=== PATIENT | female | born 1950 | race Caucasian/White ===

== ENCOUNTER 2016-07-25 11:17 | Inpatient (IN) | payer MEDICARE, BC ==
[~2016-07-25] VITALS: Ht 165.1 cm; Wt 52.7 kg
[~2016-07-25 11:17] MED LIST: ACETAMINOPHEN 1,000 MG/100 ML IV ONE; DEXAMETHASONE 4 MG/ML VIAL IV ONE; FENTANYL 250 MCG/5 ML AMP IV ONE; ONDANSETRON 4 MG VIAL IV PUSH ONE; PROPOFOL 20 ML VIAL IV ONE; ROCURONIUM 50 MG VIAL IV ONE
[2016-07-25] MEDS ORDERED: ONDANSETRON 4 MG VIAL ONE (12:24)
[2016-07-25] MEDS ORDERED: DILAUDID 1 MG/ML AMP ONE (12:25)
[2016-07-25] MEDS ORDERED: ACETAMINOPHEN 325 MG TAB PO PRN (14:05)
[2016-07-25] MEDS ORDERED: MORPHINE 4 MG/ML SYR ONE (15:16)
[2016-07-25 16:36] VITALS: BP_SYST 130; RESP 18; TEMP 98.5
[2016-07-25 16:37] VITALS: Ht 165.1 cm; Wt 52.7 kg
[2016-07-25] MEDS: CHOLECALCIFEROL 1,000 UNITS TAB PO SCH (17:40)
[2016-07-25] MEDS: MULTIVITS/MIN (OCUVITE) TAB PO SCH (17:40)
[2016-07-25] MEDS ORDERED: MULTIVITS/MINERALS (THERAGRAN M) TAB PO SCH (17:40)
[2016-07-25] MEDS ORDERED: TIZANIDINE 4 MG TAB PO PRN (17:45)
[2016-07-25] MEDS ORDERED: ONDANSETRON 4 MG VIAL IV PUSH PRN (17:45)
[2016-07-25] MEDS ORDERED: MISSING DOSE XX ONE (17:55)
[2016-07-25] MEDS: SODIUM CHLOR 0.9% W/KCL 20MEQ 1,000 ML IV SCH (17:58)
[2016-07-25] MEDS: KETOROLAC 15 MG/ML VIAL IV PRN (17:59)
[2016-07-25 19:34] VITALS: BP_SYST 120; RESP 16; TEMP 98.2
[2016-07-25] MEDS: FAMOTIDINE 20 MG INJ IV SCH (20:26)
[2016-07-25] MEDS: MORPHINE 4 MG/ML SYR IV PRN (20:26)
[2016-07-25 22:45] VITALS: BP_SYST 120; RESP 16; TEMP 97.5
[2016-07-26] VITALS (22 sets, daily range): BP systolic 105–136; RESP 12–18; TEMP 97.9–99.1
[2016-07-26] MEDS: MORPHINE 4 MG/ML SYR IV PRN ×3 (00:36→20:55)
[2016-07-26] MEDS: SODIUM CHLOR 0.9% W/KCL 20MEQ 1,000 ML IV SCH (07:04)
[2016-07-26] MEDS ORDERED: CEFAZOLIN 2,000 MG in SODIUM CHLORIDE 0.9% 100 ML IV ONE (07:10)
[2016-07-26] MEDS ORDERED: LACT RINGERS 1,000 ML IV SCH (07:50)
[2016-07-26] MEDS ORDERED: MIDAZOLAM 2 MG/2 ML INJ IV ONE (07:50)
[2016-07-26] MEDS ORDERED: LIDOCAINE 1% BUFFERED 1 ML SYR INTRADERM PRN (07:50)
[2016-07-26] MEDS ORDERED: GLYCOPYRROLATE 0.2 MG/ML VIAL IV ONE (07:50)
[2016-07-26] MEDS ORDERED: ONDANSETRON 4 MG VIAL IV ONE (08:00)
[2016-07-26] MEDS: FAMOTIDINE 20 MG INJ IV SCH ×2 (09:00→20:53)
[2016-07-26] MEDS: CHOLECALCIFEROL 1,000 UNITS TAB PO SCH (09:00)
[2016-07-26] MEDS: MULTIVITS/MIN (OCUVITE) TAB PO SCH (09:00)
[2016-07-26] MEDS ORDERED: ROPIVACAINE 0.5% 139 MG, EPINEPHrine 1:1,000 0.2 MG, KETOROLAC INJ 30 MG, MORPHINE 10 MG SUBQ ONE ×4 (09:20)
[2016-07-26] MEDS ORDERED: MISSING DOSE XX ONE (10:15)
[2016-07-26] MEDS: KETOROLAC 15 MG/ML VIAL IV PRN (10:46)
[2016-07-26] MEDS ORDERED: SODIUM CHLORIDE 0.9% IV ONE ×4 (14:30)
[2016-07-26] MEDS ORDERED: DILAUDID 1 MG/ML AMP IV PRN ×2 (14:30→14:40)
[2016-07-26] MEDS ORDERED: TRANEXAMIC ACID IV ONE ×4 (14:30)
[2016-07-26] MEDS ORDERED: OXYCODONE 5 MG TAB PO PRN ×2 (14:30→14:40)
[2016-07-26] MEDS ORDERED: ONDANSETRON 4 MG VIAL IV PRN ×3 (14:30→16:25)
[2016-07-26] MEDS ORDERED: MEPERIDINE 25 MG/ML IV PRN ×2 (14:30→14:40)
[2016-07-26] MEDS ORDERED: MORPHINE 2 MG/ML SYR IV PRN ×3 (14:30→16:25)
[2016-07-26] MEDS ORDERED: MORPHINE 4 MG/ML SYR IV PRN ×2 (14:30→14:40)
[2016-07-26] MEDS ORDERED: SUGAMMADEX 200 MG/2 ML VIAL IV ONE (15:10)
[2016-07-26] MEDS ORDERED: SALINE FLUSH 10 ML FLUSH PRN (16:25)
[2016-07-26] MEDS ORDERED: MAG HYDROX 30 ML UDC PO PRN (16:25)
[2016-07-26] MEDS ORDERED: ONDANSETRON 4 MG TAB PO PRN (16:25)
[2016-07-26] MEDS ORDERED: D5-1/2-NS W/KCL 20MEQ/L 1,000 ML IV SCH (16:25)
[2016-07-26] MEDS ORDERED: ZOLPIDEM 5 MG TAB PO PRN (16:25)
[2016-07-26] MEDS: SALINE FLUSH 10 ML FLUSH SCH (20:00)
[2016-07-26] MEDS: CEFAZOLIN 2,000 MG in SODIUM CHLORIDE 0.9% 100 ML IV SCH (20:52)
[2016-07-26] MEDS: DOCUSATE SOD 100 MG CAP PO SCH (20:53)
[2016-07-26] MEDS: SENNA 8.6 MG TAB PO SCH (20:54)
[2016-07-26] MEDS: KETOROLAC 30 MG/ML VIAL IV PRN (23:15)
[2016-07-27 02:56] VITALS: BP_SYST 110; RESP 16; TEMP 98.5
[2016-07-27] MEDS: CEFAZOLIN 2,000 MG in SODIUM CHLORIDE 0.9% 100 ML IV SCH ×3 (03:05→14:43)
[2016-07-27] MEDS: MORPHINE 4 MG/ML SYR IV PRN (06:44)
[2016-07-27] MEDS: FONDAPARINUX 2.5 MG SYR SUBQ SCH (06:45)
[2016-07-27] MEDS: SODIUM CHLORIDE 0.9% FLUSH BAG 500 ML IV SCH (06:46)
[2016-07-27] MEDS: KETOROLAC 30 MG/ML VIAL IV PRN (06:46)
[2016-07-27 07:37] VITALS: BP_SYST 107; RESP 16; TEMP 98.2
[2016-07-27] MEDS: SALINE FLUSH 10 ML FLUSH SCH ×2 (08:39→20:41)
[2016-07-27] MEDS: DOCUSATE SOD 100 MG CAP PO SCH ×2 (08:40→20:41)
[2016-07-27] MEDS: MULTIVITS/MIN (OCUVITE) TAB PO SCH (08:40)
[2016-07-27] MEDS: CHOLECALCIFEROL 1,000 UNITS TAB PO SCH (08:40)
[2016-07-27] MEDS: SENNA 8.6 MG TAB PO SCH ×2 (08:40→20:41)
[2016-07-27] MEDS: MULTIVITS/MINERALS (THERAGRAN M) TAB PO SCH (08:41)
[2016-07-27] MEDS: FAMOTIDINE 20 MG INJ IV SCH (08:41)
[2016-07-27] MEDS: MAG HYDROX 30 ML UDC PO SCH (09:01)
[2016-07-27] MEDS: POLYETHYLENE GLYCOL 17 GM PACKET PO SCH (09:01)
[2016-07-27] MEDS ORDERED: KETOROLAC 15 MG/ML VIAL IV PRN (10:25)
[2016-07-27 12:38] VITALS: BP_SYST 117; RESP 18; TEMP 97.5
[2016-07-27 15:00] VITALS: BP_SYST 132; RESP 18; TEMP 97.8
[2016-07-27] MEDS ORDERED: BISACODYL 10 MG SUPP RECTAL PRN (17:40)
[2016-07-27] MEDS ORDERED: FLEET ENEMA 132 ML BTL RECTAL PRN (17:40)
[2016-07-27 19:18] VITALS: BP_SYST 117; RESP 16; TEMP 98.9
[2016-07-27 22:47] VITALS: BP_SYST 112; RESP 16; TEMP 97.2
[2016-07-28 02:04] VITALS: BP_SYST 105; RESP 16; TEMP 98
[2016-07-28] MEDS: SODIUM CHLORIDE 0.9% FLUSH BAG 500 ML IV SCH (06:00)
[2016-07-28] MEDS: FONDAPARINUX 2.5 MG SYR SUBQ SCH (06:17)
[2016-07-28 07:32] VITALS: BP_SYST 124; RESP 18; TEMP 98.7
[2016-07-28] MEDS: MAG HYDROX 30 ML UDC PO SCH (08:30)
[2016-07-28] MEDS: SALINE FLUSH 10 ML FLUSH SCH (08:30)
[2016-07-28] MEDS: MULTIVITS/MINERALS (THERAGRAN M) TAB PO SCH (08:30)
[2016-07-28] MEDS: DOCUSATE SOD 100 MG CAP PO SCH (08:30)
[2016-07-28] MEDS: POLYETHYLENE GLYCOL 17 GM PACKET PO SCH (08:30)
[2016-07-28] MEDS: MULTIVITS/MIN (OCUVITE) TAB PO SCH (08:31)
[2016-07-28] MEDS: CHOLECALCIFEROL 1,000 UNITS TAB PO SCH (08:31)
[2016-07-28] MEDS: SENNA 8.6 MG TAB PO SCH (08:31)
[2016-07-28 10:31] VITALS: BP_SYST 124; RESP 18; TEMP 98.7
[2016-07-28 11:47] VITALS: BP_SYST 122; RESP 18; TEMP 98.4
== END 2016-07-28 14:00 | disposition home health service (06) | DRG 470 ==
LOC: ENRESERVDT → ENRESERVTM → ER 11:17 → ENPENDDIS 13:54 → EMR 13:54 → 2NO 15:56
PROVIDERS: ADMIT Internal Medicine; ATTEND Internal Medicine
PROC: 0SRR03A Replacement of Right Hip Joint, Femoral Surface with Ceramic Synthetic Substitute, Uncemented, Open Approach (ICD-10-PCS; principal; 2016-07-26 14:32)
DX: S72.001A Fracture of unspecified part of neck of right femur, initial encounter for closed fracture (principal); I10 Essential (primary) hypertension; D62 Acute posthemorrhagic anemia; W19.XXXA Unspecified fall, initial encounter; Y92.481 Parking lot as the place of occurrence of the external cause; M81.0 Age-related osteoporosis without current pathological fracture; F41.8 Other specified anxiety disorders; I73.00 Raynaud's syndrome without gangrene; E55.9 Vitamin D deficiency, unspecified
CPT/HCPCS: 36415; 71010; 76001; 80048; 80053; 82306; 82607; 82746; 84443; 85025; 85610; 85730; 93005; 96374; 96375